=== PATIENT | female | born 1970 | race Caucasian/White ===

== ENCOUNTER → 2017-06-14 | Outpatient (REF) ==
[2015-03-27 08:42] VITALS: BMI 36.8
[~2017-06-14] MED LIST: ADVAIR INHALER; ALB18R INH; ALB6.7R INH; ALBU2.5V36 IH; ALBU8.5H IH; ALBUTEROL; ALPR-1 PO; ALPR-434 PO; AZIT-1 PO; AZIT-18 PO; CETI-176 PO; CODE118S5 PO; CYCL10TA29 PO; DAR100 PO; FLU220R INH; FLUT16SP19; HYDR-4309 PO; HYDR2TAB74 PO; IBUP800T37 PO; LOR5/325 PO; NAPR-724 PO; NAPR550T20 PO; ONDA4TAB PO; OXYC-373 PO; OXYC-865 PO; OXYC1TAB54 PO; PRED20TA6 PO; PROM-110 PO; PROVERA; TAMS0.4C70 PO; TETRACYCLINE; TRA50 PO; TRAM-420 PO
--- NOTE | 2017-06-14 16:58 | RADIOLOGY IMAGING REPORT ---
FACILITY: [facility] - [place] PATIENT NAME: Angella Ward : 1970 MR: [id number] V: [id number] EXAM DATE: ORDERING PHYSICIAN: TOM EGAN TECHNOLOGIST: Location: [facility] - [place] Patient: Angella Ward : 1970 Visit/Account:[id number] Date of Sevice: 06/14/2017 ELBOW 3 VIEWS RIGHT HISTORY: Fall on 05/10/2017. Right elbow pain. Patient states hand went tingly and numb during AP a nd oblique views ADDITIONAL HISTORY: None. COMPARISON: 10/19/2016 FINDINGS: Alignment is anatomic. Joint spaces are well-maintained. There is no evidence of acute or subacute fracture. No joint effusion is identified. Bony mineralization is normal. IMPRESSION: 1. No evidence of acute or subacute fracture. If there is concern for soft tissue injury, MRI may b e considered. 2. No joint effusion. Report Dictated By: Yu Mina MD at 06/14/2017 4:52 PM Report E-Signed By: Yu Mina MD at 06/14/2017 4:53 PM WSN:[id number]
== END ==
LOC: LAB 16:13
PROVIDERS: ATTEND Nurse Practitioner
DX: S59.901A Unspecified injury of right elbow, initial encounter (principal); W19.XXXA Unspecified fall, initial encounter

== ENCOUNTER → 2018-01-05 | Outpatient (REF) ==
[2015-03-27 08:42] VITALS: BMI 36.8
[~2018-01-05] MED LIST changes: -NAPR-724 PO; +NAPR500T31 PO
== END ==
LOC: LAB 11:02
PROVIDERS: ATTEND Family Medicine
DX: M79.605 Pain in left leg (principal); R22.42 Localized swelling, mass and lump, left lower limb
CPT/HCPCS: 36415; 85379

== ENCOUNTER → 2018-01-13 | Outpatient (REF) ==
[2015-03-27 08:42] VITALS: BMI 36.8
--- NOTE | 2018-01-13 15:00 | RADIOLOGY IMAGING REPORT ---
FACILITY: [facility] - [place] PATIENT NAME: Angella Ward : 1970 MR: [id number] V: [id number] EXAM DATE: ORDERING PHYSICIAN: ENIO VALLE TECHNOLOGIST: Location: [facility] - [place] Patient: Angella Ward : 1970 Visit/Account:[id number] Date of Sevice: 01/13/2018 Exam type: VENOUS DOPP LOW LEFT EXTREMITY History: Left calf pain and swelling Comparison: None. Findings: The left lower extremity veins were imaged including the left common femoral vein greater saphenous v ein superficial femoral vein popliteal vein posterior tibial vein peroneal vein anterior tibial vein revealing no evidence intraluminal thrombi the veins were compressible and demonstrated augmentation IMPRESSION: 1. No sonographic evidence DVT involving the left lower extremity veins Report Dictated By: Joanna Collins MD at 01/13/2018 2:55 PM Report E-Signed By: Joanna Collins MD at 01/13/2018 2:56 PM WSN:[email or web address]
== END ==
LOC: US 11:50
PROVIDERS: ATTEND Family Medicine
DX: M79.605 Pain in left leg (principal); R22.42 Localized swelling, mass and lump, left lower limb

== ENCOUNTER → 2018-04-26 | Outpatient (REF) ==
[2015-03-27 08:42] VITALS: BMI 36.8
[~2018-04-26] MED LIST changes: -HYDR-4309 PO; +HYDR-653 PO
--- NOTE | 2018-04-26 17:11 | RADIOLOGY IMAGING REPORT ---
[place] [facility] [place] Angella Ward : 1970 MR: [id number] V: [id number] EXAM DATE: ORDERING PHYSICIAN: ENIO VALLE TECHNOLOGIST: [place] [facility] [place] : 1970 Visit/Account:[id number] Date of Sevice: 04/26/2018 Exam type: WRIST BILAT 1 OR 2 VIEWS History: Bilateral wrist pain, carpal tunnel syndrome Comparison: Right wrist August 21, 2015. And right hand series May 10, 2017 Findings: Two views the left wrist demonstrate no evidence of acute fracture dislocation or significant arthrit ic change. No lytic or blastic bone lesions are seen. There is slight widening of this scapholunate interval although appears stable when compared the prior study. This could represent a normal anato hilton variant or possibly related to an old injury of the scapholunate ligament Two views of the right wrist demonstrate no evidence of acute fracture or dislocation or significant arthritic change. No lytic or blastic bone lesions are seen IMPRESSION: 1. There is slight widening of the scapholunate interval although appears stable when compared to pr ior studies and could be related to a normal variant versus an old injury Report Dictated By: Joanna Collins MD at 04/26/2018 5:02 PM Report E-Signed By: Joanna Collins MD at 04/26/2018 5:08 PM WSN:[email or web address]
== END ==
LOC: RAD 15:57
PROVIDERS: ATTEND Orthopaedic Surgery Orthopaedic Surgery of the Spine
DX: G56.03 Carpal tunnel syndrome, bilateral upper limbs (principal); M25.532 Pain in left wrist; M25.531 Pain in right wrist

== ENCOUNTER → 2018-07-28 | Outpatient (REF) ==
[2015-03-27 08:42] VITALS: BMI 36.8
--- NOTE | 2018-07-28 11:22 | RADIOLOGY IMAGING REPORT ---
FACILITY: [facility] - [place] PATIENT NAME: Angella Ward : 1970 MR: [id number] V: [id number] EXAM DATE: ORDERING PHYSICIAN: TOM EGAN TECHNOLOGIST: Location: [facility] Patient: Angella Ward : 1970 Visit/Account:[id number] Date of Sevice: 07/28/2018 Transvaginal pelvic ultrasound INDICATION: Pelvic pain. Left inguinal pain over scar. History states ablation 2016, previ ous tubal ligation. COMPARISON: Report without images from the CT examination abdomen and pelvis August 2015. FINDINGS: Uterus measures 10.2 x 5.2 x 7.5 cm. There is a large, mixed echogenic, solid, vascular lesion withi n the myometrium along the right aspect of the body of the uterus. This measures 3.8 x 2.8 x 2.3 cm and is most indicative of an intramural fibroid. On longitudinal images, this abuts the ventral surf yina of the endometrium. The endometrium measures 2.7 mm and has a normal appearance. There is no free fluid in the cul-de-sac. Urinary bladder is empty. Pelvic vessels appear unremarkable on this examination. Right ovary measures 2.2 x 2.9 x 1.3 cm and shows normal blood flow and contains several small follic les. Left ovary measures 4.3 x 3.2 x 3.4 cm and shows normal blood flow and contains contains a hypoechoic , avascular cysts which measures 2.9 x 3.5 x 3.1 cm. IMPRESSION: 1. 3.8 cm mixed echogenic intramural lesion anterior and to the right within the uterine body. Findi ng is most consistent with a intramural fibroid. 2. 3.5 cm left ovarian cyst. Report Dictated By: Yanick Daugherty MD at 07/28/2018 11:09 AM Report E-Signed By: Yanick Daugherty MD at 07/28/2018 11:17 AM WSN:[email or web address]
--- NOTE | 2018-07-28 12:03 | RADIOLOGY IMAGING REPORT ---
[place] [facility] [place]: Angella Ward : 1970 MR: [id number] V: [id number] EXAM DATE: ORDERING PHYSICIAN: TOM EGAN TECHNOLOGIST: Location: [facility] - [place] Patient: Angella Ward : 1970 Visit/Account:[id number] Date of Sevice: 07/28/2018 US ABD LIMITED ULTRASOUND HISTORY: Left lower quadrant pain and palpable lump left lower quadrant COMPARISON: CT abdomen pelvis September 04, 2015 FINDINGS: Multiple images labeled left groin demonstrating no evidence of a left inguinal hernia. Small fatty replaced left inguinal lymph nodes are incidentally noted. Blood flow was demonstrated in the left c ommon femoral artery and vein. Several images of the right groin were obtained for comparison. Incidentally noted is a 3.6 cm left ovarian cyst IMPRESSION: Small fatty replaced lymph nodes are noted in the left inguinal region although no demonstration of t he left inguinal hernia Incidental note of a 3.6 cm left ovarian cyst Report Dictated By: Joanna Collins MD at 07/28/2018 11:57 AM Report E-Signed By: Joanna Collins MD at 07/28/2018 11:59 AM WSN:[email or web address]
== END ==
LOC: US 03:19
PROVIDERS: ATTEND Nurse Practitioner
DX: N83.292 Other ovarian cyst, left side (principal)
CPT/HCPCS: 76705; 76830

== ENCOUNTER → 2018-08-16 | Outpatient (CLI) | payer BC ==
[2015-03-27 08:42] VITALS: BMI 36.8
[~2018-08-16] MED LIST changes: +BECL10.62 IH; +FLUT16SP19 NS; +GABA-549 PO; +METF-450 PO; +METR60GE TOP
--- NOTE | 2018-08-16 14:11 | RADIOLOGY IMAGING REPORT ---
FACILITY: [facility] - [place] PATIENT NAME: Angella Ward : 1970 MR: [id number] V: [id number] EXAM DATE: ORDERING PHYSICIAN: DAMIEN CAMPBELL TECHNOLOGIST: Location: [facility] - [place] Patient: Angella Ward : 1970 Visit/Account:[id number] Date of Sevice: 08/16/2018 ANKLE 2 VIEW LEFT, FOOT 2 VIEW LEFT HISTORY: left foot and ankle pain - heel and lateral COMPARISON: X-ray examination left ankle from May 2017 FINDINGS: Mortise is symmetric. Distal tibia and fibula are intact. No effusion. Stable plantar calcaneal spurr ing with enthesopathy at the insertion of the Achilles tendon. 2 views left foot are submitted. There is hallux valgus. No fracture or destructive osseous finding. Extension is seen at the MCP joints with flexion at the PIP joints. No erosive articular change. IMPRESSION: 1. No acute osseous finding involving the ankle or foot. 2. Hallux valgus with degenerative changes in the hindfoot as above. Report Dictated By: Yanick Daugherty MD at 08/16/2018 2:03 PM Report E-Signed By: Yanick Daugherty MD at 08/16/2018 2:06 PM WSN:[id number]
--- NOTE | 2018-08-16 14:11 | RADIOLOGY IMAGING REPORT ---
FACILITY: [facility] PATIENT NAME: Angella Ward : 1970 MR: [id number] V: [id number] EXAM DATE: ORDERING PHYSICIAN: DAMIEN CAMPBELL TECHNOLOGIST: [place] [facility] [place] : 1970 Visit/Account:[id number] Date of Sevice: 08/16/2018 ANKLE 2 VIEW LEFT, FOOT 2 VIEW LEFT HISTORY: left foot and ankle pain - heel and lateral COMPARISON: X-ray examination left ankle from May 2017 FINDINGS: Mortise is symmetric. Distal tibia and fibula are intact. No effusion. Stable plantar calcaneal spurr ing with enthesopathy at the insertion of the Achilles tendon. 2 views left foot are submitted. There is hallux valgus. No fracture or destructive osseous finding. Extension is seen at the MCP joints with flexion at the PIP joints. No erosive articular change. IMPRESSION: 1. No acute osseous finding involving the ankle or foot. 2. Hallux valgus with degenerative changes in the hindfoot as above. Report Dictated By: Yanick Daugherty MD at 08/16/2018 2:03 PM Report E-Signed By: Yanick Duagherty MD at 08/16/2018 2:06 PM WSN:[id number]
== END ==
LOC: RAD 13:32
PROVIDERS: ATTEND Nurse Practitioner Family
DX: M20.12 Hallux valgus (acquired), left foot (principal); M19.072 Primary osteoarthritis, left ankle and foot

== ENCOUNTER → 2019-01-03 | Outpatient (CLI) | payer BC ==
[2015-03-27 08:42] VITALS: BMI 36.8
--- NOTE | 2019-01-03 16:25 | RADIOLOGY IMAGING REPORT ---
FACILITY: [facility] - [place] PATIENT NAME: Angella Ward : 1970 MR: [id number] V: [id number] EXAM DATE: ORDERING PHYSICIAN: DAMIEN CAMPBELL TECHNOLOGIST: Location: [facility] Patient: Angella Ward : 1970 Visit/Account:[id number] Date of Sevice: 01/03/2019 Procedures COMPARISONS: None. ADDITIONAL PERTINENT HISTORY: Low back pain with right-sided sciatica. FINDINGS: Vertebral body heights and alignments: Mild grade 1 anterior listhesis of L4 on L5. Vertebral bodies: Facet hypertrophic changes at L4-L5 and L5-S1. Disc spaces: Negative. Visualized bony pelvis: Negative. Surrounding soft tissues: Patient status post cholecystectomy. IMPRESSION: 1. Mild spondylitic change involving the lower lumbar spine. 2. No acute appearing bony abnormalities. Report Dictated By: Tariq Yeung MD at 01/03/2019 4:15 PM Report E-Signed By: Tariq Yeung MD at 01/03/2019 4:16 PM WSN:[email or web address]
--- NOTE | 2019-01-05 09:31 | RADIOLOGY IMAGING REPORT ---
FACILITY: [facility] PATIENT NAME: EMILY ALVAREZ : [id number] MR: [id number] V: [id number] EXAM DATE: [id number] ORDERING PHYSICIAN: DAMIEN CAMPBELL TECHNOLOGIST: Sukhdev Cornejo RDMS, JULIA PROCEDURE:BILATERAL DIAGNOSTIC DIGITAL MAMMOGRAM WITH CAD ASSISTED INTERPRETATION & 3D TOMOSYNTHESIS REASON FOR STUDY: Right breast lump 10 o'clock position x 2 months FAMILY HISTORY OF BREAST CANCER: Maternal Aunt & possible Grandmother BREAST PROCEDURES/TREATMENTS: None COMPARISON STUDIES: 01/22/15, 10/15/13, 02/29/12 MAMMOGRAM VIEWS OBTAINED: Bilateral 2D & 3D full field CC & MLO projections BREAST DENSITY: There are scattered areas of fibroglandular density throughout the breasts. MAMMOGRAM FINDINGS: The parenchymal pattern has remained stable allowing for difference in mammographic technique & patient positioning. ULTRASOUND LIMITED RIGHT BREAST AREA SCANNED: Right axillar & area of interest ULTRASOUND FINDINGS: a discrete mass is not demonstrated. Tissue in the Right axilla appeared similar to breast fibroglandular tissue. Clinical follow up recommended for patient's palpable finding. DIAGNOSTIC CATEGORY 2--BENIGN FINDING. RECOMMENDATIONS: ROUTINE MAMMOGRAM AND CLINICAL EVALUATION. CLINICAL EVALUATION. IMPRESSION: BIRADS 2: Benign finding. No significant abnormality identified to account for patient's palpable findings. Therefore, clinical follow up recommended. Dictated by: Joanna Collins M.D. on 01/03/2019 at 17:57 Approved by: Joanna Collins M.D. on 01/05/2019 at 9:27 [facility]
--- NOTE | 2019-01-05 09:31 | RADIOLOGY IMAGING REPORT ---
FACILITY: [facility] PATIENT NAME: EMILY ALVAREZ : [id number] MR: [id number] V: [id number] EXAM DATE: [id number] ORDERING PHYSICIAN: DAMIEN CAMPBELL TECHNOLOGIST: Lois Gasca PROCEDURE:BILATERAL DIAGNOSTIC DIGITAL MAMMOGRAM WITH CAD ASSISTED INTERPRETATION & 3D TOMOSYNTHESIS REASON FOR STUDY: Right breast lump 10 o'clock position x 2 months FAMILY HISTORY OF BREAST CANCER: Maternal Aunt & possible Grandmother BREAST PROCEDURES/TREATMENTS: None COMPARISON STUDIES: 01/22/15, 10/15/13, 02/29/12 MAMMOGRAM VIEWS OBTAINED: Bilateral 2D & 3D full field CC & MLO projections BREAST DENSITY: There are scattered areas of fibroglandular density throughout the breasts. MAMMOGRAM FINDINGS: The parenchymal pattern has remained stable allowing for difference in mammographic technique & patient positioning. ULTRASOUND LIMITED RIGHT BREAST AREA SCANNED: Right axillar & area of interest ULTRASOUND FINDINGS: a discrete mass is not demonstrated. Tissue in the Right axilla appeared similar to breast fibroglandular tissue. Clinical follow up recommended for patient's palpable finding. DIAGNOSTIC CATEGORY 2--BENIGN FINDING. RECOMMENDATIONS: ROUTINE MAMMOGRAM AND CLINICAL EVALUATION. CLINICAL EVALUATION. IMPRESSION: BIRADS 2: Benign finding. No significant abnormality identified to account for patient's palpable findings. Therefore, clinical follow up recommended. Dictated by: Joanna Collins M.D. on 01/03/2019 at 17:57 Transcribed by: IVONNE on 01/04/2019 at 13:48 Approved by: Joanna Collins M.D. on 01/05/2019 at 9:27 [facility]
== END ==
LOC: MAMO 01:32
PROVIDERS: ATTEND Nurse Practitioner Family
DX: R92.8 Other abnormal and inconclusive findings on diagnostic imaging of breast (principal); N63.10 Unspecified lump in the right breast, unspecified quadrant; M54.41 Lumbago with sciatica, right side
CPT/HCPCS: 72100; 77062; 77066

== ENCOUNTER → 2019-01-09 | Outpatient (CLI) | payer BC ==
[2015-03-27 08:42] VITALS: BMI 36.8
[2019-01-09 11:35] LABS: LDL CHOLESTEROL 99 mg/dl
== END ==
LOC: LAB 10:48
PROVIDERS: ATTEND Nurse Practitioner Family
DX: R73.01 Impaired fasting glucose (principal); E66.9 Obesity, unspecified; Z82.49 Family history of ischemic heart disease and other diseases of the circulatory system
CPT/HCPCS: 36415; 82040; 82247; 82310; 82374; 82435; 82465; 82565; 82947; 83036; 83718; 84075; 84132; 84155; 84295; 84443; 84450; 84460; 84478; 84520